=== PATIENT | male | born 1965 | race Caucasian/White ===

== ENCOUNTER 2017-05-21 07:30 | Day surgery (SDC) | payer BC ==
--- NOTE | 2017-05-17 21:54 | HP ---
PREOPERATIVE HISTORY AND PHYSICAL: DATE OF SURGERY/ADMISSION: 05/21/17 [facility] DATE OF OFFICE VISIT/ENCOUNTER: 05/03/17 ATTENDING SURGEON: Carolynn Medina MD * (DICTATED BY CONNIE NAVA) PROCEDURE: Right wrist excision of mass. CHIEF COMPLAINT: Lump, right wrist. HISTORY OF PRESENT ILLNESS: This is a 51-year-old male, who reports he noticed a bump on the volar aspect of his right wrist about 4 months ago. 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 He states that it is getting larger. It is not particularly uncomfortable unless he presses on it hard and he does not think it limits his range of motion. It is more bothersome than anything else. He denies any associated numbness or tingling in his hand. He would like to have the mass surgically excised. PAST MEDICAL HISTORY: 1. Hypercholesterolemia. 2. Sleep apnea, on CPAP at night. 3. Hypertension. PAST SURGICAL HISTORY: 1. Tonsillectomy. 2. Uvulectomy. 3. Left ankle open reduction internal fixation. CURRENT MEDICATIONS: 1. CoQ10 Plus. 2. Fenofibrate. 3. Fish oil 1200 mg 2 every day. 4. Flonase Allergy Relief 50 mcg ACT 1 intranasal puff each nostril daily. 5. Metoprolol succinate ER 25 mg daily. 6. Multivitamin daily. 7. Pravastatin sodium 60 mg daily. 8. Ramipril. 9. Ranitidine HCl. 10. TriCor 145 mg once daily. ALLERGIES: No known drug allergies. FAMILY MEDICAL HISTORY: Hypertension and diabetes. SOCIAL HISTORY: The patient is employed as an supervisor electronics assembly. He denies tobacco and recreational drug use. He does drink alcohol on occasion. REVIEW OF SYSTEMS: General: Negative for fevers, chills, or night sweats. No known anesthesia problems. HEENT: Negative for headache, lightheadedness, or syncopal episodes. Integumentary: Negative for abrasions, lesions, or open wounds. Cardiothoracic: Positive for hypertension, negative for chest pain, palpitations, and edema. Pulmonary: Negative for shortness of breath with exertion, chronic cough, COPD. GI: Negative for nausea, vomiting, diarrhea, constipation, or GERD. : Negative for nocturia, urinary frequency, urgency, history of UTIs, and kidney problems. Musculoskeletal: Positive for current complaint. Negative for chronic or intermittent back pain or history of fractures. Neurologic: Negative for history of seizure, stroke, or epilepsy. Endocrine: Negative for diabetes or thyroid issues. Hematologic: Negative for easy bruising, anemia, excessive bleeding, or history of DVT. Infectious Disease: Negative for history of MRSA, hepatitis C, HIV. PHYSICAL EXAMINATION GENERAL: Well-developed, well nourished, 51-year-old male in on acute distress. VITAL SIGNS: Height 5 feet 6 inches, weight 250 pounds. Pulse rate 72, blood pressure 136/78. HEENT: Normocephalic, atraumatic. Pupils are equal, round, and reactive to light and accommodation. Extraocular movements are intact. Throat is clear. NECK: Supple. No palpable lymph nodes. PULMONARY: Lungs are clear to auscultation bilaterally. No wheezes, rales, or rhonchi. CARDIOVASCULAR : Regular rate and rhythm. S1, S2. No murmurs, rubs, or gallop. No edema. ABDOMEN: Positive bowel sounds, soft, nontender. MUSCULOSKELETAL: On exam of his right wrist, he has a mid-sized cyst-like structure on the volar aspect of the mid wrist, it is soft and mobile. It is minimally tender to palpation, it is not pulsatile. There is a negative Tinel' s. He has good range of motion of his wrist and fingers and the cyst does not seem to be a limiting factor. NEUROLOGIC: Alert and oriented x3. Cranial nerves II through XII are intact. Sensation is intact to light touch. IMAGING STUDIES: X-rays of the right wrist show no osseous abnormality, minimal degenerative changes. IMPRESSION: Right wrist cyst, likely ganglion cyst. PLAN: The patient is scheduled to undergo a right wrist excision of mass with Dr. Medina on 05/21/17. He will return to the office 10 to 14 days postop for followup and suture removal. A prescription for Ultracet was e-scribed to the patient's pharmacy for postoperative pain management. CONNIE NAVA [id number]/[facility] #: [id number] [facility]ITAL[facility]
[~2017-05-21 07:30] MED LIST: Buffered Lidocaine 0.9% SYRIN* 5 ML/SYR SYRINGE INTRADERM ONE; Ibuprofen TAB* 400 MG PO ONE; Sodium Citrate/Citric Acid* 15 ML UDC PO ONE
[2017-05-21] MEDS ORDERED: Ibuprofen TAB* 400 MG ONE (07:33)
[2017-05-21] MEDS ORDERED: Sodium Citrate/Citric Acid* 15 ML UDC ONE (07:33)
[2017-05-21] MEDS ORDERED: Lidocaine 1% INJ* 10 MG/ML 30 ML SDV ONE (08:25)
[2017-05-21] MEDS ORDERED: fentaNYL* 50 MCG/ML 2 ML VIAL (100 MCG VIAL) ONE (08:59)
[2017-05-21] MEDS ORDERED: Midazolam* 1 MG/ML 2 ML VIAL (2 MG) ONE (08:59)
[2017-05-21] MEDS ORDERED: Propofol* 10 MG/ML 20 ML BTL IV PUSH ONE (09:05)
[2017-05-21 09:46] VITALS: BP 126/72
--- NOTE | 2017-05-21 23:44 | OP ---
CC: Dr. Medina OPERATIVE NOTE: DATE OF OPERATION: 05/21/17 DATE OF : 67 SURGEON: Carolynn Medina MD HOSPITAL ADMINISTRATOR: CONNIE Angel ANESTHESIA: Local MAC. PRE-OP DIAGNOSIS: Right wrist mass. POST-OP DIAGNOSIS: Right wrist mass. OPERATIVE PROCEDURE: Remove, right wrist mass. ESTIMATED BLOOD LOSS: Zero. TOURNIQUET TIME: About 15 minutes. OPERATIVE FINDINGS: The mass appeared clinically to be a ganglion cyst. DESCRIPTION OF PROCEDURE: The patient was brought to the operating room, was given a sedation anesth etic, and a local infiltration of 10 cc of 1% plain lidocaine on the volar aspect of the right wrist. The skin of his right upper extremity was prepped and draped in the usual sterile fashion. The concepcion d and forearm were exsanguinated and the tourniquet elevated to 250 mmHg. A chevron incision was mad e and centered over the mass. We dissected bluntly through the subcutaneous tissue. The mass appeare d to be a ganglion cyst. It was carefully dissected away from the palmar cutaneous branch in the med pippa nerve and then traced down to the STT joint. It was removed with the small portion of the joint c apsule and edges of the capsule cauterized with the Bovie. The median nerve and FPL tendon were visu alized and protected during the procedure by the certified surgical assistant, Angela Mike. The wound was i rrigated and the skin edges reapproximated with 4-0 nylon suture. The wound was dressed with Xerofor m, 4x4, Webril and an Tadeo wrap. The patient tolerated the procedure well and was brought to the [facility] very room in good condition. [id number]/[facility] #: [id number]
== END 2017-05-21 10:02 | disposition home or self-care (01) ==
LOC: OREAST 07:30
PROVIDERS: ATTEND Orthopaedic Surgery
DX: M67.431 Ganglion, right wrist (principal); E78.00 Pure hypercholesterolemia, unspecified; I10 Essential (primary) hypertension; G47.30 Sleep apnea, unspecified
CPT/HCPCS: 88304; A9270-GY; J2250; J2704; J3010

== ENCOUNTER 2017-07-02 07:39 | Day surgery (SDC) | payer BC ==
--- NOTE | 2017-06-07 09:58 | HP ---
PREOPERATIVE HISTORY AND PHYSICAL: DATE OF ADMISSION: 07/02/17 PROVIDER: Carolynn Medina MD * (DICTATED BY CONNIE TAVERAS) CHIEF COMPLAINT: Left hand pain. HISTORY OF PRESENT ILLNESS: Mr. Ricci is a 51-year-old male followed by Dr. Medina for ongoing pain, tingling, and numbness in the left hand. He had a nerve conduction study that revealed moderate carpal tunnel syndrome. He is interested in surgical intervention for correction of the problem at this point. PAST MEDICAL HISTORY: 1. Hypercholesterolemia. 2. Sleep apnea with CPAP at night. 3. Hypertension. PAST SURGICAL HISTORY: 1. Tonsillectomy. 2. Uvulectomy. 3. Open reduction and internal fixation of the left ankle. 4. Ganglion cyst excision of the right wrist. He reports no complications with anesthesia with those procedures. CURRENT MEDICATIONS: 1. CoQ10 Plus. 2. Fenofibrate. 3. Fish oil 1200 mg 2 tabs daily. 4. Flonase Allergy Relief 50 mcg ACT 1 intranasal puff to each nostril daily. 5. Metoprolol succinate ER 25 mg daily. 6. Multivitamin daily. 7. Pravastatin sodium 60 mg daily. 8. Ramipril daily. 9. Ranitidine HCL daily. 10. TriCor 145 mg once daily. ALLERGIES: No known drug allergies. FAMILY HISTORY: Positive for hypertension and diabetes. 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 He denies tobacco and recreational drug use. He drinks alcohol on occasion. REVIEW OF SYSTEMS: A 14-point review of systems was discussed with the patient and all systems were negative except in the HPI. PHYSICAL EXAMINATION GENERAL: He is a well-developed, well-nourished pleasant male in no acute distress at rest. He is alert and oriented x3 with appropriate mood and affect. VITAL SIGNS: The patient is 5 feet 6 inches, 250 pounds, blood pressure 148/84 , pulse of 80. HEENT: Normocephalic, atraumatic. Hearing and vision are grossly intact. NECK: Trachea is midline. RESPIRATORY: Lungs are clear to auscultation bilaterally. No wheezes, rales, or rhonchi. CARDIOVASCULAR: Regular rate and rhythm. No murmurs, rubs, or gallops. Normal S1, S2. ABDOMEN: Soft, nondistended, nontender. Normal bowel sounds. EXTREMITIES: Exam of the left upper extremity, skin is intact without abrasions or open wounds. There is no edema, ecchymosis, or gross deformities. His sensation to light touch is intact. Throughout his hand, he has positive Tinel's over the median nerve. Positive Phalen's sign. He has full flexion and extension at the MCP, PIP, and DIP joints of all digits. He has a normal vascular exam. IMPRESSION: Left wrist carpal tunnel syndrome. PLAN: The patient is to undergo left wrist carpal tunnel release by Dr. Medina on 07/02/17. The risks, benefits, and postoperative course were discussed with the patient at length and he would like to proceed. All of his questions were answered to his full satisfaction. He has understanding to call if he develops any problems or concerns. CONNIE TAVERAS [id number]/[facility] #: [id number] [place]
[2017-07-02] MEDS ORDERED: Ibuprofen TAB* 400 MG ONE (07:48)
[2017-07-02] MEDS ORDERED: Sodium Citrate/Citric Acid* 15 ML UDC ONE (07:49)
[2017-07-02] MEDS ORDERED: Lidocaine 1% INJ* 10 MG/ML 30 ML SDV ONE (08:19)
[2017-07-02] MEDS ORDERED: fentaNYL* 50 MCG/ML 2 ML VIAL (100 MCG VIAL) ONE (08:45)
[2017-07-02] MEDS ORDERED: Midazolam* 1 MG/ML 2 ML VIAL (2 MG) ONE (08:45)
[2017-07-02] MEDS ORDERED: Propofol* 10 MG/ML 20 ML BTL IV PUSH ONE (08:47)
[2017-07-02] MEDS ORDERED: Naloxone* 0.4 MG/ML 1 ML VIAL IV PRN (08:58)
[2017-07-02 09:36] VITALS: BP 132/74
--- NOTE | 2017-07-02 21:13 | OP ---
DATE OF OPERATION: 07/02/17 [facility] DATE OF : 67 SURGEON: Carolynn Medina MD MEDICAL TECHNICAL WRITER: CONNIE Angel ANESTHESIA: Local MAC. PRE-OP DIAGNOSIS: Carpal tunnel syndrome left side. POST-OP DIAGNOSIS: Carpal tunnel syndrome left side. OPERATIVE PROCEDURE: Left carpal tunnel release. ESTIMATED BLOOD LOSS: Zero. TOURNIQUET TIME: 5 minutes. INDICATIONS: Brooks is a 52-year-old man with numbness and tingling in the median nerve distribution of his left hand. He presents for left carpal tunnel release. DESCRIPTION OF PROCEDURE: The patient was brought to the operating room, he was given a sedation anesthetic and a local infiltration of 10 cc of 1% plain lidocaine in the palm of his left hand. Skin of his left hand and forearm was prepped and draped in usual sterile fashion. The hand and forearm were exsanguinated and the tourniquet elevated to 250 mmHg. A longitudinal incision was made in the palm in line with the ring finger. We dissected through the subcutaneous tissue down to the transverse carpal ligament. The ligament was divided sharply with a knife and then more proximally with the scissors. The nerve was dissected free from the surrounding tissue and there was an area of moderate compression at the mid portion of the ligament. The wound was irrigated and the skin edges were reapproximated with 4-0 nylon suture. The wound was dressed with Xeroform, 4x4, Webril, and an Tadeo wrap. The patient tolerated the procedure well, was brought to the recovery room in good condition. [id number]/[facility] #: [id number] [facility]
== END 2017-07-02 09:34 | disposition home or self-care (01) ==
LOC: OREAST 07:39
PROVIDERS: ATTEND Orthopaedic Surgery
DX: G56.02 Carpal tunnel syndrome, left upper limb (principal); I10 Essential (primary) hypertension; K21.9 Gastro-esophageal reflux disease without esophagitis; G47.33 Obstructive sleep apnea (adult) (pediatric); E78.00 Pure hypercholesterolemia, unspecified
CPT/HCPCS: A9270-GY; J2250; J2704; J3010